=== PATIENT | male | born 1955 | race Caucasian/White ===

== ENCOUNTER → 2019-07-29 | Day surgery (SDC) | payer BC ==
[~2019-07-29] MED LIST: Lactated Ringers 1,000 ML IV SCH; Propofol 200 MG/20 ML SDV IV ONE
--- NOTE | 2019-07-29 14:48 | OR ---
DATE OF OPERATION: PREOPERATIVE DIAGNOSIS: HISTORY OF POLYPS. POSTOPERATIVE DIAGNOSIS: HISTORY OF POLYPS. SURGEON: Bakari Wells MD PROCEDURE: FULL-LENGTH COLONOSCOPY WITH FORCEPS POLYP REMOVAL X2. ANESTHESIA: MAC. COMPLICATIONS: None. SPECIMEN: Sessile polyps x2, left colon. FINDINGS: 1. Full-length colonoscopy. 2. [id number] sigmoid diverticulosis. 3. Poor bowel prep with difficult to see right colon. 4. Two small sessile polyps, each approximately 3 to 4 mm, both removed with forceps. RECOMMENDATIONS: Followup colonoscopy in 5 years. INDICATIONS: The patient has a history of polyps removed in the past. He was sent for a diagnostic surveillance colonoscopy. DESCRIPTION OF PROCEDURE: The patient was prepped and draped, placed in the left lateral decubitus position. A lubricated Olympus colonoscope was inserted and with relative ease advanced to the cecum. It was difficult to see in the cecal vault and a lot of the right colon due to the volume of stool. We were able to suction some of this, but a lot of this was particulate, plugged our scope, and ultimately, limited our visualization. Upon withdrawal, the cecum, ascending and transverse colon what we could see up into about the mid transverse colon was benign. No gross polyps were seen, although smaller ones certainly could have been missed due to the prep. The distal transverse colon and descending colon were unremarkable. In the proximal sigmoid, the patient had a small flat sessile polyp approximately 3 mm, removed in its entirety with 2 forceps biopsies. There was a 2nd polyp in the rectosigmoid junction, also removed with a forceps without any difficulty. The patient does have moderate diverticular disease in the sigmoid colon, otherwise benign. The rectal vault was benign. Retroflexion showed no perianal lesions. Air was suctioned, scope was removed without complication. DOLORES/JT /[id number]
== END ==
LOC: CC.SDS 11:01
PROVIDERS: ATTEND Family Medicine
DX: Z12.11 Encounter for screening for malignant neoplasm of colon (principal); D12.5 Benign neoplasm of sigmoid colon; K63.5 Polyp of colon; K57.30 Diverticulosis of large intestine without perforation or abscess without bleeding; I10 Essential (primary) hypertension; E78.5 Hyperlipidemia, unspecified; E55.9 Vitamin D deficiency, unspecified; E83.42 Hypomagnesemia; F17.210 Nicotine dependence, cigarettes, uncomplicated; N40.1 Benign prostatic hyperplasia with lower urinary tract symptoms; R35.1 Nocturia; Z86.010 Personal history of colon polyps; Z79.82 Long term (current) use of aspirin; Z79.899 Other long term (current) drug therapy
CPT/HCPCS: 45380; J2704

== ENCOUNTER 2024-10-07 08:38 | Day surgery (SDC) | payer MEDICARE, BC ==
[2024-10-07] MEDS: Lactated Ringers 1,000 ML IV SCH (09:02)
[2024-10-07] MEDS ORDERED: fentaNYL 50 MCG/ML SDV ONE (09:36)
[2024-10-07] MEDS ORDERED: Midazolam 1 MG/ML 2 ML SDV ONE (09:36)
[2024-10-07] MEDS ORDERED: Ketamine 200 MG/20 ML MDV ONE (09:36)
[2024-10-07] MEDS ORDERED: Propofol 200 MG/20 ML SDV ONE (09:36)
== END 2024-10-07 11:00 | disposition home or self-care (01) ==
LOC: CC.SDS 08:38
PROVIDERS: ATTEND Family Medicine
DX: Z12.11 Encounter for screening for malignant neoplasm of colon (principal); D12.0 Benign neoplasm of cecum; D12.5 Benign neoplasm of sigmoid colon; K62.1 Rectal polyp; K57.30 Diverticulosis of large intestine without perforation or abscess without bleeding; Z86.0100 Personal history of colon polyps, unspecified; I10 Essential (primary) hypertension; E78.5 Hyperlipidemia, unspecified; E55.9 Vitamin D deficiency, unspecified; N40.0 Benign prostatic hyperplasia without lower urinary tract symptoms; Z79.82 Long term (current) use of aspirin; Z79.899 Other long term (current) drug therapy
CPT/HCPCS: 00811; 88305; J2250; J2704; J3010; J3490; J7120